=== PATIENT | female | born 1975 | race American Indian/Alaskan Native ===

== ENCOUNTER 2019-09-27 21:11 | Emergency (ER) | payer OTHER ==
[2019-09-27 21:44] LABS: #Basophils 0.1 thou/uL (0.0-0.2); #Eosinphils 0.1 thou/uL (0.0-0.7); #Lymphocytes 1.5 thou/uL (1.20-3.40); #Neutrophils 6.7 thou/uL (1.40-6.50); %Basophils 0.8 % (0.0-1.0); %Eosinophils 0.6 % (0.0-10.0); %Lymphocytes 16.1 % (21.0-51.0); %Monocytes 10.3 % (0.0-10.0); %Neutrophils 72.2 % (42.0-75.0); Hemoglobin 12.6 g/dL (12.0-16.0); Mean Corpuscular HGB CONC 33.7 g/dL (32.0-36.0); Mean Corpuscular Hemoglobin 30.2 pg (27.0-31.0); Mean Corpuscular Volume 89.9 fL (78.0-98.0); Mean Platelet Volume 7.9 fL (7.4-10.4); Platelet Count 282 thou/uL (130-400); RBC Distribution Width 12.6 % (11.5-14.5); Red Blood Cell (RBC) Count 4.17 mill/uL (4.20-5.40); White Blood Cell (WBC) Count 9.3 thou/uL (4.8-10.8)
[2019-09-27 22:06] LABS: ALT (SGPT) 14 U/L (8-55); AST (SGOT) 14 U/L (5-34); Albumin 3.3 g/dL (3.5-5.0); Alkaline Phosphatase 136 U/L (40-110); Anion Gap 14 mmol/L (10-20); BUN (Urea Nitrogen) 13 mg/dL (7.0-18.7); Bilirubin, Total 0.3 mg/dL (0.2-1.2); CK (CPK) 26 U/L (29-168); Calc. Creatinine Clearance 0 mL/min (70-130); Calcium 9.3 mg/dL (7.8-10.44); Carbon Dioxide 19 mmol/L (22-29); Chloride 106 mmol/L (98-107); Estimated GFR-MDRD Greater than 90; Globulin 2.9 g/dL (2.4-3.5); Glucose 104 mg/dL (70-105); Lipase 34 U/L (8-78); Potassium 3.8 mmol/L (3.5-5.1); Protein, Total 6.2 g/dL (6.0-8.3); Sodium 135 mmol/L (136-145)
[2019-09-27] MEDS ORDERED: Mag-Al 1200 mg/1200 mg/30 ML UDCUP ONE (22:07)
[2019-09-27] MEDS ORDERED: Pantoprazole 40 MG VIAL ONE (22:07)
[2019-09-27] MEDS ORDERED: Lidocaine Viscous Sol 2% 15 ml UD Cup ONE (22:07)
== END 2019-09-27 22:58 | disposition home or self-care (01) ==
LOC: ERS 21:11
DX: O99.613 Diseases of the digestive system complicating pregnancy, third trimester (principal); K21.9 Gastro-esophageal reflux disease without esophagitis; O99.89 Other specified diseases and conditions complicating pregnancy, childbirth and the puerperium; R07.89 Other chest pain; Z3A.35 35 weeks gestation of pregnancy
CPT/HCPCS: 80053; 82550; 83690; 84484; 85025; 93005; 94760; 96374; C9113

== ENCOUNTER 2019-10-28 15:19 | Inpatient (IN) | payer OTHER ==
[~2019-10-28 15:19] MED LIST: Bupivacaine 0.25% HCL 30 ML VIAL ONE
[2019-10-28 20:40] VITALS: BMI 32.5
[2019-10-28] MEDS ORDERED: Promethazine HCl 25 MG/ML VIAL IM PRN ×2 (20:41→23:22)
[2019-10-28] MEDS ORDERED: hydrALAZINE 20 MG/ML VIAL SLOW IVP PRN (20:41)
[2019-10-28] MEDS ORDERED: Lidocaine 1% (PF) 30 ML VIAL SC PRN (20:41)
[2019-10-28] MEDS ORDERED: NS / Oxytocin 40 units/1000ml 1,000 ML IV PRN (20:41)
[2019-10-28] MEDS ORDERED: Docusate 100 MG CAP PO PRN (20:41)
[2019-10-28] MEDS ORDERED: Diphenoxylate HCl/Atropine Tablet PO PRN ×2 (20:41)
[2019-10-28] MEDS ORDERED: Zolpidem Tartrate 5 MG TAB PO PRN (20:41)
[2019-10-28] MEDS ORDERED: Butorphanol Tartrate 1 MG/ML VIAL SLOW IVP PRN (20:41)
[2019-10-28] MEDS ORDERED: Misoprostol 200 MCG TAB PR PRN (20:41)
[2019-10-28] MEDS ORDERED: Acetaminophen 500 MG TAB PO PRN (20:41)
[2019-10-28] MEDS ORDERED: NS w/ Oxytocin 10 units 500 ML IV SCH ×2 (20:41)
[2019-10-28] MEDS ORDERED: Ibuprofen 800 MG TAB PO PRN (20:41)
[2019-10-28] MEDS ORDERED: HYDROcodone/Acetaminophen 5/325 mg Tablet PO PRN ×2 (20:41)
[2019-10-28] MEDS ORDERED: Penicillin G Potassium 5 MILL.UNITS in Sodium Chloride 0.9% 100 ML IVPB SCH (21:00)
[2019-10-28] MEDS: Lactated Ringer's 1,000 ML IV SCH ×2 (21:05→23:22)
[2019-10-28] MEDS ORDERED: Penicillin G Potassium 5 MILL.UNITS VIAL ONE (21:22)
[2019-10-28] MEDS: Misoprostol 100 MCG TAB VAG SCH (21:25)
[2019-10-28] MEDS ORDERED: Fentanyl 4 mcg/Bup 0.1% Cadd 100 ML ONE (22:05)
[2019-10-28] MEDS: Penicillin G 2.5 MILL.units 2.5 MILL.UNITS in Premix Bag 1 BAG IVPB SCH (22:18)
[2019-10-28 22:19] LABS: Hemoglobin 12.8 g/dL (12.0-16.0); Mean Corpuscular HGB CONC 33.6 g/dL (32.0-36.0); Mean Corpuscular Hemoglobin 30.9 pg (27.0-31.0); Mean Corpuscular Volume 91.7 fL (78.0-98.0); Mean Platelet Volume 8.9 fL (7.4-10.4); Platelet Count 224 thou/uL (130-400); RBC Distribution Width 13.2 % (11.5-14.5); Red Blood Cell (RBC) Count 4.16 mill/uL (4.20-5.40); White Blood Cell (WBC) Count 9.4 thou/uL (4.8-10.8)
[2019-10-28 23:03] LABS: Syphilis Antibody Nonreactive (Nonreactive); Syphilis Antibody Index 0.05 S/CO (<1.00 Non-Reactive)
[2019-10-28] MEDS ORDERED: Naloxone HCl 0.4 mg/ml Vial IVP PRN ×2 (23:22)
[2019-10-28] MEDS ORDERED: EPHEDRINE 25 MG/5 ML SYRINGE SLOW IVP PRN (23:22)
[2019-10-28] MEDS ORDERED: Ondansetron PF 4 MG/2 ML Vial IVP PRN (23:22)
[2019-10-28] MEDS ORDERED: Acetaminophen 325 MG TAB PO PRN (23:22)
[2019-10-28] MEDS ORDERED: Lactated Ringer's 500 ML IV PRN (23:22)
[2019-10-28] MEDS ORDERED: diphenhydrAMINE 50 MG/ML VIAL IVP PRN (23:22)
[2019-10-28] MEDS ORDERED: Fentanyl 4 mcg/Bupivacaine 0.1% Cassette 100 ML EPIDURAL SCH (23:30)
[2019-10-28] MEDS ORDERED: Communication Order-Pharmacy FS SCH (23:30)
[2019-10-29 00:19] LABS: HBSAg Index 0.17 S/CO (0-0.99); Hep B Surf Ag Non-Reactive S/CO (NonReactive)
[2019-10-29] MEDS: Penicillin G 2.5 MILL.units 2.5 MILL.UNITS in Premix Bag 1 BAG IVPB SCH ×4 (01:51→16:37)
[2019-10-29] MEDS: Misoprostol 100 MCG TAB VAG SCH (05:32)
[2019-10-29] MEDS: Ondansetron PF 4 MG/2 ML Vial IVP PRN ×2 (05:40→12:56)
[2019-10-29] MEDS ORDERED: Fentanyl 4 mcg/Bup 0.1% Cadd 100 ML ONE (07:27)
[2019-10-29] MEDS: Lactated Ringer's 1,000 ML IV SCH (08:28)
[2019-10-29] MEDS: NS / Oxytocin 40 units/1000ml 1,000 ML IV SCH ×2 (11:43→13:28)
[2019-10-29] MEDS ORDERED: Zolpidem Tartrate 5 MG TAB PO PRN (12:31)
[2019-10-29] MEDS ORDERED: hydrALAZINE 20 MG/ML VIAL SLOW IVP PRN (12:31)
[2019-10-29] MEDS ORDERED: diphenhydrAMINE 25 MG CAP PO PRN (12:31)
[2019-10-29] MEDS ORDERED: Misoprostol 200 MCG TAB VAG PRN (12:31)
[2019-10-29] MEDS ORDERED: Milk Of Magnesia 30 ML UDCUP PO PRN (12:31)
[2019-10-29] MEDS ORDERED: Lanolin Ointment 7 GM TUBE TOP PRN (12:31)
[2019-10-29] MEDS ORDERED: Ondansetron PF 4 MG/2 ML Vial IVP PRN (12:31)
[2019-10-29] MEDS ORDERED: Benzocaine-Menthol 82.5 ML CAN TOP PRN (12:31)
[2019-10-29] MEDS ORDERED: Bisacodyl 10 MG SUPP PR PRN (12:31)
[2019-10-29] MEDS ORDERED: Acetaminophen/Codeine 30-300mg Tablet PO PRN ×2 (12:31)
[2019-10-29] MEDS ORDERED: Preparation H Ointment 28 GM TUBE PR PRN (12:31)
[2019-10-29] MEDS: Ibuprofen 800 MG TAB PO SCH ×3 (14:28→21:30)
[2019-10-29] MEDS: Ferrous Sulfate 325 MG TAB PO SCH (17:27)
[2019-10-29] MEDS: Docusate Calcium (SURFAK) 240 MG CAP PO SCH (21:03)
[2019-10-30] MEDS: Ibuprofen 800 MG TAB PO SCH ×3 (04:41→20:16)
[2019-10-30 06:08] LABS: Hemoglobin 10.9 g/dL (12.0-16.0); Mean Corpuscular HGB CONC 34.1 g/dL (32.0-36.0); Mean Platelet Volume 8.8 fL (7.4-10.4); Platelet Count 186 thou/uL (130-400); RBC Distribution Width 13.4 % (11.5-14.5); White Blood Cell (WBC) Count 12.7 thou/uL (4.8-10.8)
[2019-10-30] MEDS ORDERED: Adacel (T-DAP) 0.5 ML SYRINGE IM ONE (09:00)
[2019-10-30] MEDS: Ferrous Sulfate 325 MG TAB PO SCH ×2 (09:01→17:26)
[2019-10-30] MEDS: Acetaminophen 500 MG TAB PO PRN ×2 (09:02→20:22)
[2019-10-30] MEDS: Docusate Calcium (SURFAK) 240 MG CAP PO SCH ×2 (09:02→20:16)
[2019-10-30] MEDS: Prenatal Vitamin 1 TAB PO SCH (09:02)
[2019-10-31] MEDS: Ibuprofen 800 MG TAB PO SCH ×2 (06:20→13:52)
[2019-10-31] MEDS: Ferrous Sulfate 325 MG TAB PO SCH (09:25)
[2019-10-31] MEDS: Prenatal Vitamin 1 TAB PO SCH (09:26)
[2019-10-31] MEDS: Docusate Calcium (SURFAK) 240 MG CAP PO SCH (09:26)
[2019-10-31 11:25] VITALS: BP 114/57; TEMP 98.3
== END 2019-10-31 16:05 | disposition home or self-care (01) | DRG 807 ==
LOC: L&D 19:45 → 3SW 10-29 15:45 → EDSTATUS 10-30 15:18
PROVIDERS: ADMIT Obstetrics & Gynecology; ATTEND Obstetrics & Gynecology
PROC: 10D07Z6 Extraction of Products of Conception, Vacuum, Via Natural or Artificial Opening (ICD-10-PCS; principal; 2019-10-29)
PROC: 0HQ9XZZ Repair Perineum Skin, External Approach (ICD-10-PCS; 2019-10-29)
PROC: 10907ZC Drainage of Amniotic Fluid, Therapeutic from Products of Conception, Via Natural or Artificial Opening (ICD-10-PCS; 2019-10-29)
DX: O99.824 Streptococcus B carrier state complicating childbirth (principal); Z37.0 Single live birth; Z3A.39 39 weeks gestation of pregnancy; Z90.49 Acquired absence of other specified parts of digestive tract; Z88.2 Allergy status to sulfonamides; O70.0 First degree perineal laceration during delivery
CPT/HCPCS: 36415; 51702; 85027; 86780; 86850; 86900; 86901; 87340; J0595; J2405; J2540; J2590; J3490; S0020